=== PATIENT | female | born 1985 | race African-American/Black ===

== ENCOUNTER 2019-08-27 20:16 | Emergency (ER) | payer OTHER ==
[~2019-08-27] VITALS: Ht 152.4 cm; Wt 64.4 kg
[2019-08-27] MEDS ORDERED: ZESTRIL10 M1 (20:50)
[2019-08-28] MEDS ORDERED: PEPCID40 MG PO (02:50)
[2019-08-28] MEDS ORDERED: ZOFRAN4 MG PO (02:50)
== END 2019-08-28 02:56 | disposition home or self-care (01) ==
LOC: ER 20:16
DX: K52.9 Noninfective gastroenteritis and colitis, unspecified (principal)

== ENCOUNTER 2021-02-09 10:43 | Emergency (ER) | payer OTHER ==
[~2021-02-09] VITALS: Ht 152.4 cm; Wt 68.0 kg
[~2021-02-09 10:43] MED LIST: PEPCID40 MG PO; ZESTRIL10 M1; ZOFRAN4 MG PO
[2021-02-09] MEDS ORDERED: NORVASC2.5 M1 (11:00)
== END 2021-02-09 20:45 | disposition home or self-care (01) ==
LOC: ER 10:43
DX: K29.60 Other gastritis without bleeding (principal); Z20.822 Contact with and (suspected) exposure to COVID-19

== ENCOUNTER 2021-04-08 23:13 | Emergency (ER) | payer OTHER ==
[~2021-04-08] VITALS: Ht 152.4 cm; Wt 64.9 kg
[~2021-04-08 23:13] MED LIST changes: +NORVASC2.5 M1
[2021-04-09] MEDS ORDERED: PEPCID40 MG PO (05:14)
[2021-04-09] MEDS ORDERED: ZOFRAN8 MG PO (05:14)
[2021-04-09] MEDS ORDERED: INTESTINEX680 M1 PO (05:14)
== END 2021-04-09 05:24 | disposition home or self-care (01) ==
LOC: ER 23:13
DX: K52.9 Noninfective gastroenteritis and colitis, unspecified (principal)

== ENCOUNTER 2022-11-25 10:38 | Outpatient (CLI) | payer OTHER ==
[~2022-11-25 10:38] MED LIST changes: +INTESTINEX680 M1 PO; +ZOFRAN8 MG PO
== END 2022-11-25 12:00 | disposition home or self-care (01) ==
LOC: PRENATAL 10:38
PROVIDERS: ATTEND Obstetrics & Gynecology Maternal & Fetal Medicine
DX: O36.80X0 Pregnancy with inconclusive fetal viability, not applicable or unspecified (principal); O10.019 Pre-existing essential hypertension complicating pregnancy, unspecified trimester; O09.529 Supervision of elderly multigravida, unspecified trimester; O34.219 Maternal care for unspecified type scar from previous cesarean delivery; Z3A.13 13 weeks gestation of pregnancy

== ENCOUNTER 2023-01-12 10:57 | Outpatient (CLI) | payer OTHER ==
[~2023-01-12 10:57] MED LIST changes: +FLUCONAZOLE150 MG; +NIFE60TA3 PO
== END 2023-01-12 12:45 | disposition home or self-care (01) ==
LOC: PRENATAL 10:57
PROVIDERS: ATTEND Obstetrics & Gynecology Maternal & Fetal Medicine
DX: O35.9XX0 Maternal care for (suspected) fetal abnormality and damage, unspecified, not applicable or unspecified (principal); O10.019 Pre-existing essential hypertension complicating pregnancy, unspecified trimester; O34.10 Maternal care for benign tumor of corpus uteri, unspecified trimester; O34.219 Maternal care for unspecified type scar from previous cesarean delivery; Z3A.20 20 weeks gestation of pregnancy